=== PATIENT | female | born 2000 | race Caucasian/White ===

== ENCOUNTER 2021-09-23 20:33 | Emergency (ER) | payer OTHER ==
[2021-09-23 23:12] LABS: RAPID STREP SCREEN Negative (Negative)
--- NOTE | 2021-09-23 23:45 | ED Physician Documentation ---
PD HPI URI - Stated complaint Stated Complaint: SORE THROAT, HEADACHE - Chief complaint Chief Complaint: Heent - History obtained from History obtained from: Patient - Additional information Additional information: Patient presenting for evaluation of headache and sore throat that has been present for 3 days. Her partner is also in the emergency department with similar symptoms. They have been in housing here since March and at their current residence was found to have mold or mildew issues.They called the nurse advice line and were instructed to come to the emergency department fo r mold evaluation. Patient reports scratchy sore throatAnd tension type headache. She denies thunderclap intensity to her headache. She denies photophobia, nausea, vomiting, cough, difficulty breathing, chest pain. She has been Covid vaccinated. She has additionally taken to negative tests at home for Covid. Review of Systems Ten Systems: 10 systems reviewed and negative Constitutional: denies: Fever Nose: denies: Congestion Throat: reports: Sore throat Cardiac: denies: Chest pain / pressure, Palpitations Respiratory: denies: Dyspnea, Cough GI: denies: Abdominal Pain, Nausea, Vomiting Skin: denies: Rash Musculoskeletal: denies: Neck pain Neurologic: reports: Headache PD PAST MEDICAL HISTORY - Present Medications Home Medications: Ambulatory Orders Medication Instructions Recorded Confirmed No Known Home Medications 09/23/21 09/23/21 - Allergies Allergies/Adverse Reactions: Allergies Allergy/AdvReac Type Severity Reaction Status Date / Time codeine Allergy Headache Verified 09/23/21 20:40 PD ED PE NORMAL - General General: Alert and oriented X 3, No acute distress, Well developed/nourished - HEENT HEENT: Atraumatic, PERRL, EOMI, Ears normal, Moist mucous membranes, Pharynx benign (Mild posterior pharyngeal erythema, no trismus, normal voice,No exudate, no swelling), Dentition benign - Cardiac Cardiac: RRR, No murmur - Respiratory Respiratory: No respiratory distress, Clear bilaterally - Derm Derm: Normal color, Warm and dry - Extremities Extremities: No deformity - Neuro Neuro: Alert and oriented X 3, maintenance analyst 2-12 intact, No motor deficit, No sensory deficit, Normal speech - Psych Psych: Normal mood, Normal affect Results - Vitals Vitals: Vital Signs - 24 hr 09/23/21 09/23/21 20:37 23:56 Temperature 36.4 C L 36.5 C Heart Rate 100 89 Respiratory 16 16 Rate Blood Pressure 130/78 125/72 O2 Saturation 99 98 Oxygen O2 Source Room air - Labs Labs: Laboratory Tests 09/23/21 22:50 Group A Strep Rapid Negative PD MEDICAL DECISION MAKING - ED course ED course: Patient presenting for evaluation of sore throat and headache in the setting of possible recent mold exposure. She is overall very well-appearing with no signs of airway compromise. Headache appears benign with no Concerning features for subarachnoid hemorrhage, meningitis, dissection or stroke.She has had 2 - Covid tests. Her rapid strep was negative. Her symptoms could be from a viral process as her spouse is also exhibiting similar symptoms.However she does have concerns that her symptoms could be from mold exposure. I did advise that any testing forMold related illness would need to be done by primary care doctor and is not performed through the emergency department. Patient understands. Departure - Departure Disposition: 01 Home, Self Care Clinical Impression: Sore throat, Suspected exposure to mold Condition: Stable Instructions: Allergens Mold, Sore Throats Self Care Comments: Your strep test was negative. Your sore throat could be caused by a number of factors including a viral illness.Please continue with supportive care recommendations as we discussed such as anti-inflammatory medications like ibuprofen and salt water gargle. Please also follow-up with your primary care doctor to discuss mold testing as this is not performed in the emergency department. Discharge Date/Time: 09/23/21 23:56
[2021-09-23 23:57] VITALS: BP 125/72
== END 2021-09-23 23:56 | disposition home or self-care (01) ==
LOC: ED 20:33
DX: R51.9 Headache, unspecified (principal); J02.9 Acute pharyngitis, unspecified; Z77.120 Contact with and (suspected) exposure to mold (toxic)
CPT/HCPCS: 87070; 87430; 99282; 99283

== ENCOUNTER 2022-03-12 11:41 | Outpatient (CLI) | payer OTHER | END 2022-03-12 11:42 | disposition critical access hospital (66) | LOC: EMS 11:41 | DX: R00.0 Tachycardia, unspecified (principal) | CPT/HCPCS: A0425; A0427 ==

== ENCOUNTER 2022-03-12 12:07 | Emergency (ER) | payer OTHER ==
--- NOTE | 2022-03-12 12:19 | ED Physician Documentation ---
History of Present Illness - Stated complaint Stated Complaint: RAPID HR - Additonal information Additional information: 21-year-old female was brought to the emergency department for evaluation of tachycardia. She was at home this morning and began to feel very lightheaded and dizzy. She laid on her bed and her watch began to alarm that she had a heart rate of 190. She summoned EMS. When they arrived they describe her as very anxious and hypertensive. She however was sinus tach on the monitor with a heart rate variable between 120 and 140. She did have occasional PVCs. They gave her a liter of fluid in route and on presentation she is feeling markedly better though still mildly tachycardic with a heart rate of about 115. At no point was she feeling any shortness of air or chest pain. no recent travel. No surgeries or immobilizations. No unilateral leg swelling or calf tenderness Patient denies any history of similar. No family history of tachycardia syndromes. Patient denies any drug use. Does have a history of irritable bowel syndrome and was started on Linzess about 3 months ago. Denies possibility of on OCP. Review of Systems Constitutional: denies: Fever, Chills Ears: reports: Reviewed and negative Throat: reports: Reviewed and negative Cardiac: reports: Palpitations Respiratory: reports: Reviewed and negative GI: reports: Reviewed and negative : reports: Reviewed and negative Skin: reports: Reviewed and negative Musculoskeletal: reports: Reviewed and negative Neurologic: reports: Near syncope. denies: Confused, Headache, Head injury, LOC Psychiatric: reports: Reviewed and negative PD PAST MEDICAL HISTORY - Present Medications Home Medications: Ambulatory Orders Medication Instructions Recorded Confirmed No Known Home Medications 09/23/21 09/23/21 - Allergies Allergies/Adverse Reactions: Allergies Allergy/AdvReac Type Severity Reaction Status Date / Time codeine Allergy Headache Verified 03/12/22 12:19 PD ED PE NORMAL - General General: Alert and oriented X 3, No acute distress, Well developed/nourished - HEENT HEENT: Atraumatic, Moist mucous membranes, Pharynx benign - Neck Neck: Supple, no meningeal sign, No adenopathy - Cardiac Cardiac: RRR (sinus tachycardia on monitor), No murmur, No gallop - Respiratory Respiratory: No respiratory distress, Clear bilaterally - Abdomen Abdomen: Normal bowel sounds, Soft, Non tender - Back Back: No CVA TTP, No spinal TTP - Derm Derm: Normal color, Warm and dry - Extremities Extremities: No deformity, No tenderness to palpate, Normal ROM s pain - Neuro Neuro: Alert and oriented X 3, clay caster 2-12 intact Eye Opening: To Voice Motor: Obeys Commands Verbal: Oriented GCS Score: 14 Results - Vitals Vitals: Vital Signs - 24 hr 03/12/22 12:14 Temperature 36.4 C L Heart Rate 105 H Respiratory 16 Rate Blood Pressure 118/67 O2 Saturation 100 Oxygen O2 Source Room air - EKG (time done) 1216 Rate: Rate (enter#) (95) Rhythm: NSR [place]: Normal Intervals: Normal NV QRS: Normal Ischemia: ST elevation c/w repol Compare to prior EKG: Old EKG unavailable Computer interpretation: Agree with computer - Labs Labs: Laboratory Tests 03/12/22 03/12/22 03/12/22 12:28 12:28 12:28 WBC 6.7 RBC 4.73 Hgb 13.5 Hct 40.4 MCV 85.4 MCH 28.5 MCHC 33.4 RDW 12.3 Plt Count 270 MPV 8.7 Neut # (Auto) 3.9 Lymph # (Auto) 2.1 [place] # (Auto) 0.5 Eos # (Auto) 0.2 Baso # (Auto) 0.0 Absolute Nucleated RBC 0.00 Nucleated RBC % 0.0 Sodium 136 Potassium 3.6 Chloride 108 Carbon Dioxide 22 Anion Gap 6.0 BUN 5 L Creatinine 0.6 Estimated GFR (MDRD) 125 Glucose 116 H Calcium 8.8 Phosphorus 2.2 L Magnesium 1.9 Total Bilirubin 0.3 AST 16 ALT 16 Alkaline Phosphatase 43 Total Protein 7.2 Albumin 4.0 Globulin 3.2 Albumin/Globulin Ratio 1.3 Lipase 31 TSH 2.22 Urine Color Urine Clarity Urine pH Ur Specific [place] Urine Protein Urine Glucose (UA) Urine Ketones Urine Occult Blood Urine Nitrite Urine Bilirubin Urine Urobilinogen Ur Leukocyte Esterase Ur Microscopic Review Urine Culture Comments Urine HCG, Qual Urine Opiates Screen Ur Oxycodone Screen Urine Methadone Screen Ur Propoxyphene Screen Ur Barbiturates Screen Ur Tricyclics Screen Ur Phencyclidine Scrn Ur Amphetamine Screen U Methamphetamines Scrn U Benzodiazepines Scrn Urine Cocaine Screen U Cannabinoids Screen 03/12/22 12:41 WBC RBC Hgb Hct MCV MCH MCHC RDW Plt Count MPV Neut # (Auto) Lymph # (Auto) [place] # (Auto) Eos # (Auto) Baso # (Auto) Absolute Nucleated RBC Nucleated RBC % Sodium Potassium Chloride Carbon Dioxide Anion Gap BUN Creatinine Estimated GFR (MDRD) Glucose Calcium Phosphorus Magnesium Total Bilirubin AST ALT Alkaline Phosphatase Total Protein Albumin Globulin Albumin/Globulin Ratio Lipase TSH Urine Color LT. YELLOW Urine Clarity CLEAR Urine pH 6.5 Ur Specific [place] <=1.005 Urine Protein NEGATIVE Urine Glucose (UA) NEGATIVE Urine Ketones NEGATIVE Urine Occult Blood TRACE-INTA Urine Nitrite NEGATIVE Urine Bilirubin NEGATIVE Urine Urobilinogen 0.2 (NORMAL) Ur Leukocyte Esterase NEGATIVE Ur Microscopic Review NOT INDICATED Urine Culture Comments NOT INDICATED Urine HCG, Qual NEGATIVE Urine Opiates Screen NEGATIVE Ur Oxycodone Screen NEGATIVE Urine Methadone Screen NEGATIVE Ur Propoxyphene Screen NEGATIVE Ur Barbiturates Screen NEGATIVE Ur Tricyclics Screen NEGATIVE Ur Phencyclidine Scrn NEGATIVE Ur Amphetamine Screen NEGATIVE U Methamphetamines Scrn NEGATIVE U Benzodiazepines Scrn NEGATIVE Urine Cocaine Screen NEGATIVE U Cannabinoids Screen NEGATIVE - Rads (name of study) cxr Radiology: Final report received (No acute cardiopulmonary process) Departure - Departure Disposition: 01 Home, Self Care Clinical Impression: Tachycardia Condition: Stable Record reviewed to determine appropriate education?: Yes Comments: Adilene you are seen today in the emergency department because you had an episode of dizziness at home. When you checked your watch it alerted you that you had a heart rate as high as 190. Here in the emergency department your EKG showed sinus rhythm without anything to suggest a heart attack. The blood count on your blood work as well as your electrolytes were all essentially normal. Your chest x-ray is also normal for age. While you have been here on the monitor in the emergency department you have not had any abnormal ectopy or runs of a fast heart rate. However I do wonder if the episode you had at home was a condition called SVT or supraventricular tachycardia. Should you experience similar symptoms again please try the Valsalva maneuvers or bear down as we discussed. If this does not resolve the symptoms, you feel persistently fatigued, have a high heart rate at rest greater than 130 or any fainting episodes you should return immediately to the ER. It is important to discuss this ED visit with your primary care doctor as soon as possible. You should be referred for a Holter monitor at a minimum.
[2022-03-12 12:32] LABS: BASOPHILS % (AUTO) 0.6 %; EOSINOPHILS # (AUTO) 0.2 10^3/uL (0.0-0.7); EOSINOPHILS % (AUTO) 2.2 %; HCT - HEMATOCRIT 40.4 % (37.0-47.0); HGB - HEMOGLOBIN 13.5 g/dL (12.0-16.0); LYMPHOCYTES # (AUTO) 2.1 10^3/uL (1.5-3.5); LYMPHOCYTES % (AUTO) 31.7 %; MEAN CORPUSCULAR HEMOGLOBIN 28.5 pg (27.0-31.0); MEAN CORPUSCULAR HGB CONC 33.4 g/dL (32.0-36.0); MEAN CORPUSCULAR VOLUME 85.4 fL (81.0-99.0); MEAN PLATELET VOLUME 8.7 fL (7.9-10.8); MONOCYTES # (AUTO) 0.5 10^3/uL (0.0-1.0); MONOCYTES % (AUTO) 6.9 %; NEUTROPHILS # (AUTO) 3.9 10^3/uL (1.5-6.6); NEUTROPHILS % (AUTO) 58.3 %; PLT - PLATELET COUNT 270 10^3/uL (130-450); RED BLOOD COUNT 4.73 10^6/uL (4.20-5.40); RED CELL DISTRIBUTION WIDTH 12.3 % (12.0-15.0); WHITE BLOOD COUNT 6.7 x10^3/uL (4.8-10.8)
[2022-03-12 12:47] LABS: ALBUMIN/GLOBULIN RATIO 1.3 (1.0-2.2); BILIRUBIN,TOTAL 0.3 mg/dL (0.2-1.0); CALCIUM 8.8 mg/dL (8.5-10.3); CREATININE 0.6 mg/dL (0.4-1.0); MAGNESIUM 1.9 mg/dL (1.7-2.8); PHOSPHORUS 2.2 mg/dL (2.5-4.6); POTASSIUM 3.6 mmol/L (3.5-5.0); TOTAL PROTEIN 7.2 g/dL (6.7-8.2)
[2022-03-12 12:50] LABS: MUDS CUTOFF CONCENTRATIONS CUTOFF CONC BELOW:
[2022-03-12 12:58] LABS: BILIRUBIN,URINE NEGATIVE (NEGATIVE); GLUCOSE, URINE (UA) NEGATIVE (NEGATIVE); KETONES,URINE (UA) NEGATIVE (NEGATIVE); LEUKOCYTE ESTERASE, URINE NEGATIVE (NEGATIVE); NITRITE,URINE NEGATIVE (NEGATIVE); OCCULT BLOOD,URINE TRACE-INTA (NEGATIVE); PH,URINE 6.5 PH (5.0-7.5); PROTEIN,URINE NEGATIVE (NEGATIVE); UROBILINOGEN,URINE 0.2 (NORMAL) E.U./dL (NORMAL)
--- NOTE | 2022-03-12 12:58 | XRAY Report ---
PROCEDURE: Chest 1 View X-Ray INDICATIONS: tachycardia TECHNIQUE: One view of the chest was acquired. COMPARISON: None. FINDINGS: Surgical changes and devices: None. Lungs and pleura: No pleural effusions or pneumothorax. Lungs are clear. Mediastinum: Mediastinal contours appear normal. Heart size is normal. Bones and chest wall: No suspicious bony lesions. Overlying soft tissues appear unremarkable. IMPRESSION: No acute cardiopulmonary pathology. Reviewed by: Rocky Tucker MD on 03/12/2022 12:57 PM PDT Approved by: Rocky Tucker MD on 03/12/2022 12:57 PM PDT Station ID: [id number]
[2022-03-12 13:01] LABS: CLARITY,URINE CLEAR (CLEAR); HCG UR QUAL NEGATIVE
[2022-03-12 13:15] LABS: AMPHETAMINE SCREEN,URINE NEGATIVE (NEGATIVE); BARBITURATE SCREEN,UR NEGATIVE (NEGATIVE); BENZODIAZEPINES SCREEN, URINE NEGATIVE (NEGATIVE); COCAINE SCREEN URINE NEGATIVE (NEGATIVE); METHADONE SCREEN, URINE NEGATIVE (NEGATIVE); METHAMPHETAMINES SCREEN, URINE NEGATIVE (NEGATIVE); OPIATE SCREEN, URINE NEGATIVE (NEGATIVE); OXYCODONE SCREEN, URINE NEGATIVE (NEGATIVE); PROPOXYPHENE SCREEN, URINE NEGATIVE (NEGATIVE); THC CANNABINOID SCREEN, URINE NEGATIVE (NEGATIVE); TRICYCLIC ANTIDEPRESSANT,URINE NEGATIVE (NEGATIVE)
[2022-03-12 13:52] VITALS: BP 117/75
== END 2022-03-12 13:52 | disposition home or self-care (01) ==
LOC: EDUNIT# → ED 12:07
DX: R00.0 Tachycardia, unspecified (principal)
CPT/HCPCS: 36415; 80053; 80306; 81001; 81003; 81025; 83690; 83735; 84100; 84443; 85025; 87086; 93005; 99284

== ENCOUNTER 2022-03-13 09:17 | Emergency (ER) | payer OTHER ==
--- NOTE | 2022-03-13 09:55 | ED Physician Documentation ---
History of Present Illness - Stated complaint Stated Complaint: DIZZY/RAPID HR - Chief complaint Chief Complaint: Cardiac - History obtained from History obtained from: Patient, Family - History of Present Illness Timing: Yesterday - Additonal information Additional information: Previously well 21-year-old Adilene Salguero begin experiencing dizziness and lightheadedness with standing yesterday. She was evaluated in the emergency department she was given a liter of fluid and had unremarkable laboratory evaluation. Yesterday she had a fit bit on and was able to clock her heart rate at 190. In the emergency department her heart rate yesterday peaked at 105. She has a referral to see the core placer for monitoring. She denies any vomiting but confirms daily loose stools since starting Linzess for IBS. She denies excessive caffeine use or use of supplements or diuretics. Review of Systems Constitutional: denies: Fever, Chills, Myalgias, Fatigue, Weight Loss, Sweats Eyes: denies: Decreased vision Ears: denies: Ear pain Nose: denies: Congestion Throat: denies: Sore throat Cardiac: denies: Chest pain / pressure, Palpitations Respiratory: denies: Dyspnea, Cough GI: reports: Diarrhea. denies: Abdominal Pain, Nausea, Vomiting, Constipation : denies: Dysuria, Frequency Skin: denies: Rash, Lesions Musculoskeletal: denies: Neck pain, Back pain, Extremity pain Neurologic: reports: Other (near syncope on standing.). denies: Generalized weakness, Focal weakness, Numbness, Confused, Altered mental status Psychiatric: reports: Anxiety. denies: Depressed, Suicidal Endocrine: denies: Polydypsia, Polyuria, Weight loss PD PAST MEDICAL HISTORY - Past Medical History Past Medical History: Yes - Present Medications Home Medications: Ambulatory Orders Medication Instructions Recorded Confirmed No Known Home Medications 09/23/21 09/23/21 - Allergies Allergies/Adverse Reactions: Allergies Allergy/AdvReac Type Severity Reaction Status Date / Time codeine Allergy Headache Verified 03/13/22 09:29 - Social History Does the pt smoke?: No Smoking Status: Never smoker PD ED PE NORMAL - Vitals Vital signs reviewed: Yes (normal ) - General General: Alert and oriented X 3, No acute distress, Well developed/nourished, Other (Normal appearing 21-year-old female in no distress presents to the emergency department at the request of her physician.) - HEENT HEENT: Atraumatic, PERRL, EOMI - Neck Neck: Supple, no meningeal sign, No bony TTP - Cardiac Cardiac: RRR, No murmur - Respiratory Respiratory: No respiratory distress, Clear bilaterally - Abdomen Abdomen: Normal bowel sounds, Soft, Non tender, Non distended, No organomegaly - Back Back: No CVA TTP, No spinal TTP - Derm Derm: Normal color, Warm and dry, No rash - Extremities Extremities: No deformity, No edema - Neuro Neuro: Alert and oriented X 3, professor in family studies 2-12 intact, No motor deficit, No sensory deficit, Normal speech Eye Opening: Spontaneous Motor: Obeys Commands Verbal: Oriented GCS Score: 15 - Psych Psych: Normal mood, Normal affect Results - Vitals Vitals: Vital Signs - 24 hr 03/13/22 03/13/22 03/13/22 09:25 10:23 11:29 Temperature 36.4 C L Heart Rate 85 81 Heart Rate [ 105 H Sitting] Heart Rate [ 141 H Standing] Heart Rate [ 113 H Supine] Respiratory 16 19 Rate Blood Pressure 123/80 116/83 H Blood Pressure 139/97 H [Sitting] Blood Pressure 117/86 H [Standing] Blood Pressure 123/77 [Supine] O2 Saturation 98 99 03/13/22 03/13/22 11:39 12:09 Temperature 36.9 C Heart Rate 88 Heart Rate [ 81 Sitting] Heart Rate [ 101 H Standing] Heart Rate [ 92 Supine] Respiratory 18 Rate Blood Pressure 132/107 H Blood Pressure 131/76 H [Sitting] Blood Pressure 132/107 H [Standing] Blood Pressure 133/81 H [Supine] O2 Saturation 99 Oxygen O2 Source Room air - EKG (time done) 0925 Rate: Rate (enter#) (88) Ischemia: Q waves, Non specific changes Compare to prior EKG: Unchanged from prior EKG (SPT 03-12-2022 no sig change) Computer interpretation: Agree with computer - Labs Labs: Laboratory Tests 03/13/22 03/13/22 03/13/22 10:20 10:29 10:29 WBC 7.8 RBC 5.16 Hgb 14.8 Hct 44.4 MCV 86.0 MCH 28.7 MCHC 33.3 RDW 12.5 Plt Count 312 MPV 8.9 Neut # (Auto) 4.5 Lymph # (Auto) 2.6 [place] # (Auto) 0.5 Eos # (Auto) 0.1 Baso # (Auto) 0.1 Absolute Nucleated RBC 0.00 Nucleated RBC % 0.0 Sodium 138 Potassium 3.6 Chloride 105 Carbon Dioxide 23 Anion Gap 10.0 BUN 6 Creatinine 0.7 Estimated GFR (MDRD) 105 Glucose 100 Calcium 9.8 Total Bilirubin 0.6 AST 16 ALT 17 Alkaline Phosphatase 48 Total Protein 8.4 H Albumin 4.4 Globulin 4.0 Albumin/Globulin Ratio 1.1 Lipase 30 Urine Color LIGHT YELLOW Urine Clarity CLEAR Urine pH 7.0 Ur Specific [place] <=1.005 Urine Protein NEGATIVE Urine Glucose (UA) NEGATIVE Urine Ketones NEGATIVE Urine Occult Blood TRACE-INTA Urine Nitrite NEGATIVE Urine Bilirubin NEGATIVE Urine Urobilinogen 0.2 (NORMAL) Ur Leukocyte Esterase NEGATIVE Ur Microscopic Review NOT INDICATED Urine Culture Comments NOT INDICATED Urine HCG, Qual NEGATIVE Procedures - IVC sono (time) 1010 Bedside IVC sono: IVC measures (cm) (1.19), IVC collapsed c insp (cm) (0.42), Dehydration (est < 1 liter deficit) PD MEDICAL DECISION MAKING - ED course Complexity details: reviewed old records, reviewed results, re-evaluated patient, considered differential, d/w patient, d/w family ED course: 21-year-old female on Linzess who is having trouble with lightheaded and dizziness when she is standing is found to be dehydrated on interrogation of the inferior vena cava despite this she has a low urine specific gravity normal electrolytes and normal blood counts. I do not find any evidence use of diuretic and we did check the patient's orthostatics today and her heart rate today peaked 140 with standing. We were able to demonstrate volume depletion and my concern with this patient as I did not have an obvious source of the volume depletion with the exception of the Linzess. The primary contraindication with Linzess to pediatric patients is potentially fatal dehydration. I have discussed the findings with the patient and . Departure - Departure Disposition: 01 Home, Self Care Clinical Impression: Volume depletion Condition: Stable Instructions: ED Dehydration Follow-Up: TEREZA Sheriff [Provider Group] Comments: Adilene, today we found that you were volume depleted. We found this on interrogation of your inferior vena cava with bedside ultrasound. We found that you were symptomatic with standing and your heart rate increased to 140 with standing. This is consistent with volume depletion. This was improved after your administered fluid. We found normal electrolytes and blood counts and your urine specific gravity was low (usually consistent with good hydration or with use of a diuretic. My recommendation is to call your hot stick man and ask about potentially stopping the Linzess and to follow up with cardiology as the rate of 190 is high for dehydration. In the mean time --- sit before standing and stand before walking. Discharge Date/Time: 03/13/22 12:08
[2022-03-13] MEDS ORDERED: SODIUM CHLORIDE 0.9% 1,000 ML IV STA (10:26)
[2022-03-13 10:38] LABS: BILIRUBIN,URINE NEGATIVE (NEGATIVE); CLARITY,URINE CLEAR (CLEAR); GLUCOSE, URINE (UA) NEGATIVE (NEGATIVE); KETONES,URINE (UA) NEGATIVE (NEGATIVE); LEUKOCYTE ESTERASE, URINE NEGATIVE (NEGATIVE); NITRITE,URINE NEGATIVE (NEGATIVE); OCCULT BLOOD,URINE TRACE-INTA (NEGATIVE); PROTEIN,URINE NEGATIVE (NEGATIVE); UROBILINOGEN,URINE 0.2 (NORMAL) E.U./dL (NORMAL)
[2022-03-13 10:40] LABS: BASOPHILS # (AUTO) 0.1 10^3/uL (0.0-0.1); BASOPHILS % (AUTO) 0.6 %; EOSINOPHILS # (AUTO) 0.1 10^3/uL (0.0-0.7); EOSINOPHILS % (AUTO) 1.2 %; HCT - HEMATOCRIT 44.4 % (37.0-47.0); HGB - HEMOGLOBIN 14.8 g/dL (12.0-16.0); LYMPHOCYTES # (AUTO) 2.6 10^3/uL (1.5-3.5); LYMPHOCYTES % (AUTO) 34.1 %; MEAN CORPUSCULAR HEMOGLOBIN 28.7 pg (27.0-31.0); MEAN CORPUSCULAR HGB CONC 33.3 g/dL (32.0-36.0); MEAN PLATELET VOLUME 8.9 fL (7.9-10.8); MONOCYTES # (AUTO) 0.5 10^3/uL (0.0-1.0); MONOCYTES % (AUTO) 6.5 %; NEUTROPHILS # (AUTO) 4.5 10^3/uL (1.5-6.6); NEUTROPHILS % (AUTO) 57.3 %; PLT - PLATELET COUNT 312 10^3/uL (130-450); RED BLOOD COUNT 5.16 10^6/uL (4.20-5.40); RED CELL DISTRIBUTION WIDTH 12.5 % (12.0-15.0); WHITE BLOOD COUNT 7.8 x10^3/uL (4.8-10.8)
[2022-03-13 10:41] LABS: HCG UR QUAL NEGATIVE
[2022-03-13 10:49] LABS: ALBUMIN 4.4 g/dL (3.2-5.5); ALBUMIN/GLOBULIN RATIO 1.1 (1.0-2.2); BILIRUBIN,TOTAL 0.6 mg/dL (0.2-1.0); CALCIUM 9.8 mg/dL (8.5-10.3); CREATININE 0.7 mg/dL (0.4-1.0); POTASSIUM 3.6 mmol/L (3.5-5.0); TOTAL PROTEIN 8.4 g/dL (6.7-8.2)
[2022-03-13 12:09] VITALS: BP 132/107
== END 2022-03-13 12:08 | disposition home or self-care (01) ==
LOC: ED 09:17
DX: E86.9 Volume depletion, unspecified (principal); E86.0 Dehydration; K58.9 Irritable bowel syndrome, unspecified; Z79.899 Other long term (current) drug therapy
CPT/HCPCS: 36415; 80053; 81001; 81003; 81025; 83690; 85025; 87086; 93005; 96360; 99283

== ENCOUNTER 2022-05-29 22:04 | Outpatient (CLI) | payer OTHER | END 2022-05-29 23:59 | disposition critical access hospital (66) | LOC: EMS 22:04 | DX: R42 Dizziness and giddiness (principal); R00.0 Tachycardia, unspecified | CPT/HCPCS: A0425; A0429 ==